=== PATIENT | female | born 1980 | race Caucasian/White ===

== ENCOUNTER 2016-10-27 19:53 | Emergency (ER) | payer MEDICAID ==
[~2016-10-27] VITALS: Ht 162.6 cm; Wt 99.8 kg
[~2016-10-27 19:53] MED LIST: ACETAMINOPHEN-1 EAC1 ORAL; ACETAMINOPHEN500 M3 ORAL; AMOXICILLIN500 MG ORAL; CLINDAMYCIN HC300 MG ORAL; IBUPROFEN600 MG ORAL; LOTRISONE CREAM15 GM TP; METFORMIN HCL500 M1 ORAL; NKM; NORCO 5-325 TA1 EACH ORAL; PENICILLIN V P500 MG ORAL
[2016-10-27 20:43] VITALS: BP 132/84
--- NOTE | 2016-10-27 21:38 | Emergency Room Report ---
History of Present Illness General Chief Complaint: Sore Throat Source: Patient, Medical Record Present Illness HPI 36-year-old female presents to emergency Department complaining of pain, swelling of the tonsils, fevers and chills x2 days.reports 10/10 pain. Pt states tonsils are so swollen causes her to gag, cough, and is painful to swallow. Pt. has been taking both tylenol and motrin every 6 hours with minimal relief of pain, only relief of fevers. Pt. also reports cough x 5 days. denies sputum production, denies wheezing, SOB, or dyspnea. pt. denies neck stiffness or neck pain. Denies CP, Palpitations, LOC, AMS, dizziness, Changes in Vision, Sensation, paresthesias, or a sudden severe headache. Allergies: Coded Allergies: No Known Allergies (Unverified , 06/01/13) Patient History Past Medical History: see triage record Past Surgical History: none Pertinent Family History: none Last Menstrual Period: on period Now: No Immunizations: UTD Reviewed Nursing Documentation: PMH: Agreed, PSxH: Agreed Nursing Documentation-PMH Past Medical History: No History, Except For Hx Diabetes: Yes Review of Systems All Other Systems: negative except mentioned in HPI Physical Exam Vital Signs Date Time Temp Pulse Resp B/P Pulse Ox O2 Delivery O2 Flow Rate FiO2 10/27/16 20:03 98.2 89 16 132/84 96 Room Air Sp02 EP Interpretation: reviewed, normal General Appearance: no apparent distress, alert, GCS 15, non-toxic Head: normocephalic, atraumatic Eyes: bilateral eye PERRL, bilateral eye normal inspection ENT: hearing grossly normal, normal pharynx, no angioedema, normal voice, TMs + canals normal, moist mucus membranes, nasal congestion, pharyngeal erythema, tonsillar exudate Neck: full range of motion, no meningismus, no bony tend, supple/symm/no masses Respiratory: chest non-tender, lungs clear, normal breath sounds, speaking full sentences Cardiovascular #1: regular rate, rhythm, no edema Cardiovascular #2: 2+ carotid (R), 2+ carotid (L), 2+ radial (R), 2+ radial (L) , 2+ dorsalis pedis (R), 2+ dorsalis pedis (L) Gastrointestinal: normal bowel sounds, non tender, soft, no guarding, no rebound Rectal: deferred Genitourinary: normal inspection, no CVA tenderness Musculoskeletal: back normal, gait/station normal, normal range of motion, non- tender, no calf tenderness Neurologic: alert, oriented x3, responsive, motor strength/tone normal, sensory intact, speech normal Psychiatric: judgement/insight normal, memory normal, mood/affect normal, no suicidal/homicidal ideation Reflexes: 4+ bicep (R), 4+ bicep (L), 4+ tricep (R), 4+ tricep (L), 4+ knee (R) , 4+ knee (L) Skin: normal color, no rash, warm/dry, well hydrated Lymphatic: no adenopathy Medical Decision Making PA Attestation Dr. Alanis is my supervising Physician whom patient management has been discussed with. Diagnostic Impression: Primary Impression: Pharyngitis, acute Qualified Codes: J02.9 - Acute pharyngitis, unspecified ER Course Pt. presents to the ED c/o : sore throat, painful swallowing, tonsillar swelling with fevers and chills x 2 days -Pt has taken both tylenol and motrin FINANCIAL OPERATIONS CONSULTANT. Ddx considered but are not limited to: pharyngitis, strep, FINANCIAL OPERATIONS CONSULTANT, ludwigs angina, URI Vital signs: are WNL, pt. is afebrile H&PE are most consistent with: pharyngitis presumed strep. ORDERS: None required at this time as the diagnosis is clinical ED INTERVENTIONS: -8mg Decadron IM. DISCHARGE: At this time pt. is stable for d/c to home. Will provide printed patient care instructions, and any necessary prescriptions. Care plan and follow up instructions have been discussed with the patient prior to discharge. Last Vital Signs Date Time Temp Pulse Resp B/P Pulse Ox O2 Delivery O2 Flow Rate FiO2 10/27/16 20:43 98.2 16 132/84 96 Room Air 10/27/16 20:03 89 Disposition: HOME, SELF-CARE Condition: Stable Scripts Ibuprofen* (MOTRIN*) 600 Mg Tablet 600 MG ORAL THREE TIMES A DAY, #30 TAB 0 Refills Prov: Macy Forrester P.A. 10/27/16 D-Methorphan Hb/Prometh Hcl* (PROMETHAZINE-DM SYRUP*) 118 Ml Syrup 5 ML ORAL Q6H Y for For Cough, #118 ML 0 Refills Prov: Macy Forrester 10/27/16 Amoxicillin* (AMOXIL*) 500 Mg Capsule 500 MG ORAL BID for 10 Days, #20 CAP Prov: Macy Forrester 10/27/16 Patient Instructions: Pharyngitis Additional Instructions: Take medications as directed. Follow up with PCP in 3-5 days Return sooner to ED if new symptoms occur, or current symptoms become worse. Macy Forrester Oct 27, 2016 21:38
[2016-10-27] MEDS ORDERED: AMOXICILLIN500 MG ORAL (21:39)
[2016-10-27] MEDS ORDERED: IBUPROFEN600 MG ORAL (21:39)
[2016-10-27] MEDS ORDERED: PROMETHAZINE-D118 ML ORAL (21:39)
[2016-10-27] MEDS ORDERED: Dexamethasone 4mg/ml vial IM ONE (21:45)
[2016-10-27 22:05] VITALS: BP 132/83
== END 2016-10-27 22:05 | disposition home or self-care (01) ==
LOC: EMR 21:30
DX: J02.9 Acute pharyngitis, unspecified (principal); E11.9 Type 2 diabetes mellitus without complications
CPT/HCPCS: 96372; 99283; J1100

== ENCOUNTER 2018-09-08 22:15 | Emergency (ER) | payer MEDICAID ==
[~2018-09-08] VITALS: Ht 162.6 cm; Wt 81.6 kg
[~2018-09-08 22:15] MED LIST changes: +PROMETHAZINE-D118 ML ORAL
[2018-09-08] MEDS ORDERED: NORVASC5 MG ORAL (22:27)
[2018-09-08] MEDS ORDERED: NEURONTIN300 MG ORAL (22:27)
[2018-09-08] MEDS ORDERED: HYDROmorphone 1mg/ml Carpuject IVP ONE (22:45)
--- NOTE | 2018-09-08 23:01 | Emergency Room Report ---
History of Present Illness General Chief Complaint: Pelvic Pain Source: Patient Present Illness HPI Is a 38-year-old female with no significant past medical history. She presents with groin pain. Around 8:30 today she was moving a dining room table and then she felt sharp pain in her left groin area. She now felt a lump there. Pain is 10 out of 10. Sharp in nature. No radiation. Worse with movement. Worse with palpation. No trauma. Allergies: Coded Allergies: No Known Allergies (Unverified , 06/01/13) Patient History Past Medical History: see triage record, old chart reviewed Past Surgical History: none Pertinent Family History: none Social History: Denies: smoking Last Menstrual Period: 08/19/2018 Now: No : 5 Para: 2 Nursing Documentation-[facility] Past Medical History: No History, Except For Hx Cardiac Problems: No - anemic-iron Hx Hypertension: Yes Hx Diabetes: Yes - pre diabetic Hx Cerebrovascular Accident: Yes - 2015 Review of Systems Eye: Denies: eye pain, blurred vision ENT: Denies: ear pain, nose congestion, throat swelling Respiratory: Denies: cough, shortness of breath Cardiovascular: Denies: chest pain, palpitations Gastrointestinal: Denies: abdominal pain, diarrhea, nausea, vomiting Musculoskeletal: Denies: back pain, joint pain Skin: Denies: rash Neurological: Denies: headache, numbness Endocrine: Denies: increased thirst, increased urine Hematologic/Lymphatic: Denies: easy bruising All Other Systems: negative except mentioned in HPI Physical Exam Vital Signs Date Time Temp Pulse Resp B/P (MAP) Pulse Ox O2 Delivery O2 Flow Rate FiO2 09/08/18 22:22 98.1 101 18 121/75 98 Room Air vitals normal Sp02 EP Interpretation: reviewed, normal General Appearance: well appearing, no apparent distress, alert Head: normocephalic, atraumatic Eyes: bilateral eye PERRL, bilateral eye EOMI ENT: hearing grossly normal, normal pharynx Neck: full range of motion, supple, no meningismus Respiratory: chest non-tender, lungs clear, normal breath sounds Cardiovascular #1: regular rate, rhythm, no murmur Gastrointestinal: normal bowel sounds, non tender, no mass, no organomegaly, no bruit, non-distended, other - Small left inguinal hernia. Tender to palpation. Musculoskeletal: back normal, gait/station normal, normal range of motion Psychiatric: mood/affect normal Skin: warm/dry Medical Decision Making Diagnostic Impression: Primary Impression: Inguinal hernia Qualified Codes: K40.90 - Unilateral inguinal hernia, without obstruction or gangrene, not specified as recurrent ER Course Patient with a left inner hernia. No evidence of any incarceration or obstruction. Reduce easily. We'll discharge home. Last Vital Signs Date Time Temp Pulse Resp B/P (MAP) Pulse Ox O2 Delivery O2 Flow Rate FiO2 09/08/18 22:22 98.1 101 18 121/75 98 Room Air Status: improved Disposition: HOME, SELF-CARE Condition: Stable Scripts Ibuprofen* (MOTRIN*) 600 Mg Tablet 600 MG ORAL THREE TIMES A DAY, #30 TAB 0 Refills Prov: Nathaniel Flores MD 09/08/18 Hydrocodone/Acetaminophen 5-325* (HYDROCODONE/ACETAMINOPHEN 5-325*) 1 Each Tablet 1 TAB ORAL Q6H PRN for For Pain, #15 TAB 0 Refills Prov: Nathaniel Flores MD 09/08/18 Referrals: NON PHYSICIAN (PCP) Additional Instructions: Follow-up with your doctor in 7 days. You may need a referral to see a surgeon. Return if worse. Nathaniel Flores MD Sep 08, 2018 23:01
[2018-09-08] MEDS ORDERED: IBUPROFEN600 MG ORAL (23:12)
[2018-09-08] MEDS ORDERED: HYDROCODON-ACE1 EA15 ORAL (23:12)
[2018-09-08 23:30] VITALS: BP 119/79
[2018-09-08 23:41] VITALS: BP 119/79
== END 2018-09-08 23:35 | disposition home or self-care (01) ==
LOC: EMR 22:48
DX: K40.90 Unilateral inguinal hernia, without obstruction or gangrene, not specified as recurrent (principal); R10.2 Pelvic and perineal pain; I10 Essential (primary) hypertension; Z86.73 Personal history of transient ischemic attack (TIA), and cerebral infarction without residual deficits
CPT/HCPCS: 96374; 96375; 99284; J1170; J2405

== ENCOUNTER 2018-12-15 10:07 | Emergency (ER) | payer MEDICAID ==
[~2018-12-15] VITALS: Ht 162.6 cm; Wt 89.8 kg
[~2018-12-15 10:07] MED LIST changes: +HYDROCODON-ACE1 EA15 ORAL; +NEURONTIN300 MG ORAL; +NORVASC5 MG ORAL
[2018-12-15] MEDS ORDERED: Dexamethasone 4mg/ml vial IM ONE (10:30)
[2018-12-15] MEDS ORDERED: AMOXICILLIN500 MG ORAL (10:32)
[2018-12-15] MEDS ORDERED: IBUPROFEN600 MG ORAL (10:32)
[2018-12-15 11:08] VITALS: BP 126/86
--- NOTE | 2018-12-15 11:10 | NUR ---
ED Nurse Note:pt. received decadron injection
--- NOTE | 2018-12-15 11:10 | NUR ---
ER DISCHARGE NOTE: Patient is cleared to be discharged per ERMD, pt is aox4, on room air, with stable vital signs. pt was given dc and prescription instructions, pt was able to verbalize understanding, pt is able to ambulate with steady gait. pt took all belongings.
[2018-12-15 11:11] VITALS: BP 126/86
--- NOTE | 2018-12-15 13:40 | Emergency Room Report ---
History of Present Illness General Chief Complaint: Sore Throat Source: Patient Present Illness HPI 38-year-old female presents ED for evaluation. Patient complaining of sore throat 2 days. States that her daughter was sick initially and was diagnosed with tonsillitis. Pain is throbbing, 10 out of 10, nonradiating. Hurst to swallow. Denies fevers chills. Denies cough. No other aggravating relieving factors. Denies any other associated symptoms Allergies: Coded Allergies: No Known Allergies (Unverified , 06/01/13) Patient History Past Medical History: DM, HTN, CVA/TIA Pertinent Family History: none Social History: Denies: smoking, alcohol use, drug use Last Menstrual Period: 11/2018 Now: No Immunizations: UTD Reviewed Nursing Documentation: PMH: Agreed; PSxH: Agreed Nursing Documentation-PMH Past Medical History: No History, Except For Hx Cardiac Problems: No - anemic-iron Hx Hypertension: Yes Hx Diabetes: Yes - pre diabetic Hx Cerebrovascular Accident: Yes - 2015 Review of Systems All Other Systems: negative except mentioned in HPI Physical Exam Vital Signs Date Time Temp Pulse Resp B/P (MAP) Pulse Ox O2 Delivery O2 Flow Rate FiO2 12/15/18 10:12 98.4 94 19 126/86 98 Room Air Sp02 EP Interpretation: reviewed, normal General Appearance: no apparent distress, alert, GCS 15, non-toxic Head: normocephalic Eyes: bilateral eye normal inspection, bilateral eye PERRL ENT: TMs + canals normal, uvula midline, pharyngeal erythema, tonsillar exudate Neck: full range of motion, supple, no meningismus, supple/symm/no masses Respiratory: normal inspection Cardiovascular #1: normal inspection Gastrointestinal: normal inspection Rectal: deferred Genitourinary: no CVA tenderness Musculoskeletal: normal inspection Neurologic: alert, oriented x3, responsive, motor strength/tone normal, sensory intact, speech normal Psychiatric: normal inspection Skin: normal inspection Lymphatic: normal inspection Medical Decision Making Diagnostic Impression: Primary Impression: Pharyngitis Qualified Codes: J02.9 - Acute pharyngitis, unspecified ER Course Hospital Course 38-year-old female presents to ED complaining of sore throat Differential diagnoses include: URI, pharyngitis, otitis media Clinical course Patient placed on stretcher. After initial history, physical exam reveals a female in no acute distress. Bilateral TM unremarkable. There is pharyngeal erythema w/ tonsillar exudates. No lymphadenopathy. Clinical findings consistent with pharyngitis discussed findings with patient. Given Decadron. Safe for discharge close outpatient follow-up. Patient states she has a PMD Diagnosis - pharyngitis Stable and discharged home with prescriptions for Motrin, amoxicillin. Instructed to followup with PMD. return to ED if symptoms recur or worsen Last Vital Signs Date Time Temp Pulse Resp B/P (MAP) Pulse Ox O2 Delivery O2 Flow Rate FiO2 12/15/18 11:11 98.4 75 19 126/86 98 Room Air Status: improved Disposition: HOME, SELF-CARE Condition: Stable Scripts Ibuprofen* (MOTRIN*) 600 Mg Tablet 600 MG ORAL Q8H PRN for For Pain, #30 TAB 0 Refills Prov: Drew Tirado MD 12/15/18 Amoxicillin* (AMOXIL*) 500 Mg Capsule 500 MG ORAL THREE TIMES A DAY, #21 CAP Prov: Drew Tirado MD 12/15/18 Referrals: [facility],REFERRING (PCP) Patient Instructions: Pharyngitis, [id number] Drew Tirado MD Dec 15, 2018 13:40
== END 2018-12-15 11:13 | disposition home or self-care (01) ==
LOC: EMR 10:35
DX: J02.9 Acute pharyngitis, unspecified (principal); I10 Essential (primary) hypertension; E11.9 Type 2 diabetes mellitus without complications; Z86.73 Personal history of transient ischemic attack (TIA), and cerebral infarction without residual deficits
CPT/HCPCS: 96372; 99283; J1100

== ENCOUNTER 2019-01-06 18:24 | Emergency (ER) | payer SELFPAY ==
[~2019-01-06] VITALS: Ht 162.6 cm; Wt 81.6 kg
--- NOTE | 2019-01-06 18:43 | NUR ---
ED Nurse Note: pt placed in room
[2019-01-06] MEDS ORDERED: Azithromycin 500 MG in NS 275 ML IV ONE (19:00)
[2019-01-06] MEDS ORDERED: Isovue-300 100ml vial INJ PRN (19:00)
[2019-01-06] MEDS ORDERED: Ketorolac 30mg Inj IV ONE (19:00)
[2019-01-06] MEDS ORDERED: Dexamethasone 4mg/ml vial IVP ONE (19:00)
[2019-01-06 19:01] VITALS: BP 101/78
--- NOTE | 2019-01-06 19:02 | NUR ---
ED Nurse Note: received pt. pt walked in to ED with daughter due to sore throat for 4 days. pt also c/o fever and chills. per pt, feeling swelling neck on left side. unable to swollow any food or drink. no cough. per pt, had similar sx couple weeks ago. denies SOB. will wait for the further order.
--- NOTE | 2019-01-06 19:10 | NUR ---
ED Nurse Note: Received Pt and report from day shift. Knowing Pt will need IV blood work as soon, will insert IV soon.
--- NOTE | 2019-01-06 19:15 | NUR ---
ED Nurse Note: Report given to NOAM Noriega. Patient returning from restroom with urine sample. Addendum: 01/06/19 at 1923 by OSWALD Ambulating with steady gait.
--- NOTE | 2019-01-06 19:30 | NUR ---
ED Nurse Note: Blood and urine sample sent to lab.
[2019-01-06 19:58] LABS: HEMATOCRIT 26.6 % (37.0-47.0); HEMOGLOBIN 7.9 G/DL (12.0-16.0); MEAN CORPUSCULAR VOLUME 67 FL (80-99); PLATELET COUNT 581 K/UL (150-450); RED BLOOD COUNT 3.97 M/UL (4.20-5.40); RED CELL DISTRIBUTION WIDTH 16.6 % (11.6-14.8); WHITE BLOOD COUNT 18.9 K/UL (4.8-10.8)
[2019-01-06 20:22] LABS: ANION GAP 7 mmol/L (5-15); BLOOD UREA NITROGEN 7 mg/dL (7-18); CARBON DIOXIDE 30 MMOL/L (21-32); CHLORIDE 100 MMOL/L (98-107); CREATININE 0.8 MG/DL (0.55-1.30); POTASSIUM 3.8 MMOL/L (3.5-5.1); SODIUM 137 MMOL/L (136-145)
--- NOTE | 2019-01-06 20:24 | Consultation ---
History of Present Illness General Date patient seen: Jan 06, 2019 Reason for Hospitalization: Sore Throat Present Illness HPI This is a 38-year-old female who is otherwise healthy that presents to the emergency department at [facility] complaining of worsening right neck and throat pain. Patient states that approximately 2 weeks ago she was diagnosed with pharyngitis and started on oral antibiotics. She was safe for discharge and discharged home with plans to follow-up with her PCP and potentially ENT referral. Patient states that she has an appointment with her PCP on January 13 but pain is been worsening and came to emergency department for evaluation. States that she is breathing okay and denies any shortness of breath or respiratory issues. States that she has difficulty swallowing solids but can tolerate liquids. Denies any nausea or vomiting fever or chills. In emergency department noted to have a leukocytosis of 18,000. Surgery called to evaluate. Allergies: Coded Allergies: No Known Allergies (Unverified , 06/01/13) Medication History Scheduled Amlodipine Besylate (Norvasc), Unknown Dose ORAL DAILY, (Reported) Amoxicillin* (Amoxil*), 500 MG ORAL THREE TIMES A DAY Gabapentin (Neurontin), 300 MG ORAL THREE TIMES A DAY, (Reported) Ibuprofen* (Motrin*), 600 MG ORAL THREE TIMES A DAY Metformin Hcl* (Metformin Hcl*), 500 MG ORAL TWICE A DAY, (Reported) Scheduled PRN Hydrocodone/Acetaminophen 5-325* (Hydrocodone/Acetaminophen 5-325*), 1 TAB ORAL Q6H PRN for For Pain Ibuprofen* (Motrin*), 600 MG ORAL Q8H PRN for For Pain Patient History Healthcare decision maker Resuscitation status Advanced Directive on File Review of Systems Review of Symptoms General ROS: no weight loss or fever Psychological ROS: no depression or mood changes, no memory loss Ophthalmic ROS: no visual changes or eye irritation ENT ROS: no nasal congestion, hearing loss, dizziness, throat pain Allergy and Immunology ROS: no allergic symptoms or urticaria Hematological and Lymphatic ROS: no swollen glands, unusual bleeding or bruising Endocrine ROS: no polyuria, polydipsia, weight changes, temperature intolerance Respiratory ROS: no cough, shortness of breath, or wheezing Cardiovascular ROS: no chest pain or dyspnea on exertion Gastrointestinal ROS: denies abdominal pain, no bright red blood in stool. Musculoskeletal ROS: no myalgias or arthralgias Neurological ROS: no TIA or stroke symptoms Dermatological ROS: no new or changing skin lesions, rashes or pruritis Physical Exam Physical Exam General appearance: alert, cooperative, no distress, appears stated age Head: Normocephalic, without obvious abnormality, atraumatic Eyes: conjunctivae/corneas clear. PERRL, EOM's intact. Fundi benign Throat: Lips, mucosa, and tongue normal. Teeth and gums normal; right pharyx erythema / tender Neck: supple, symmetrical, trachea midline, right adenopathy, thyroid: not enlarged, symmetric, tenderness on right, no carotid bruit and no JVD Lungs: clear to auscultation bilaterally Heart: regular rate and rhythm, S1, S2 normal, no murmur, click, rub or gallop Abdomen: soft, non-tender. Bowel sounds normal. No masses, no organomegaly Extremities: extremities normal, atraumatic, no cyanosis or edema Pulses: 2+ and symmetric Skin: Skin color, texture, turgor normal. No rashes or lesions Neurologic: Grossly normal Last 24 Hour Vital Signs Date Time Temp Pulse Resp B/P (MAP) Pulse Ox O2 Delivery O2 Flow Rate FiO2 01/06/19 19:01 101.1 99 20 101/78 96 Room Air 01/06/19 18:31 101.1 99 20 96 Room Air Laboratory Tests Test 01/06/19 19:35 White Blood Count 18.9 K/UL (4.8-10.8) H Red Blood Count 3.97 M/UL (4.20-5.40) L Hemoglobin 7.9 G/DL (12.0-16.0) L Hematocrit 26.6 % (37.0-47.0) L Mean Corpuscular Volume 67 FL (80-99) L Mean Corpuscular Hemoglobin 19.8 PG (27.0-31.0) L Mean Corpuscular Hemoglobin Concent 29.5 G/DL (32.0-36.0) L Red Cell Distribution Width 16.6 % (11.6-14.8) H Platelet Count 581 K/UL (150-450) H Mean Platelet Volume 5.0 FL (6.5-10.1) L Neutrophils (%) (Auto) % (45.0-75.0) Lymphocytes (%) (Auto) % (20.0-45.0) Monocytes (%) (Auto) % (1.0-10.0) Eosinophils (%) (Auto) % (0.0-3.0) Basophils (%) (Auto) % (0.0-2.0) Neutrophils % (Manual) Pending Lymphocytes % (Manual) Pending Platelet Estimate Pending Platelet Morphology Pending Urine HCG, Qualitative Negative (NEGATIVE) Sodium Level Pending Potassium Level Pending Chloride Level Pending Carbon Dioxide Level Pending Blood Urea Nitrogen Pending Creatinine Pending Estimat Glomerular Filtration Rate Pending Glucose Level Pending Lactic Acid Level 1.10 mmol/L (0.4-2.0) Calcium Level Pending Total Bilirubin Pending Aspartate Amino Transf (AST/SGOT) Pending Alanine Aminotransferase (ALT/SGPT) Pending Alkaline Phosphatase Pending Total Protein Pending Albumin Pending Globulin Pending Height (Feet): 5 Height (Inches): 4.00 Weight (Pounds): 180 Medications Current Medications Medications (Trade) Dose Ordered Sig/Freya Route PRN Reason Start Time Stop Time Status Last Admin Dose Admin Iopamidol (Isovue-300 100ml) 100 ml NOW PRN INJ Radiology Procedure 01/06/19 19:00 01/08/19 18:49 Assessment/Plan Problem List: (1) Pharyngitis Assessment & Plan: This is a 38-year-old female with recently diagnosed pharyngitis who returns with right neck submandibular pain, throat pain, feeling unwell. Afebrile, hemodynamically stable, leukocytosis. On exam tenderness in the right neck and submandibular region without significant palpable masses but some mild adenopathy. Oral examination demonstrates erythema and edema and inflammation of her right oropharynx. Above findings were discussed with patient and family in detail. Recommend ENT evaluation. May need to change antibiotics as they once prescribed prior were not seemingly effective. Recommend hydration. ICD Codes: J02.9 - Acute pharyngitis, unspecified SNOMED: [id number] Juan J Mejia Jan 06, 2019 20:24
[2019-01-06 20:27] LABS: ALANINE AMINOTRANSFERASE 23 U/L (12-78); ALBUMIN 3.7 G/DL (3.4-5.0); ALBUMIN/GLOBULIN RATIO 0.8 (1.0-2.7); ALKALINE PHOSPHATASE 108 U/L (46-116); ASPARTATE AMINO TRANSFERASE 14 U/L (15-37); BILIRUBIN,TOTAL 0.3 MG/DL (0.2-1.0)
--- NOTE | 2019-01-06 21:19 | Emergency Room Report ---
History of Present Illness General Chief Complaint: Sore Throat Present Illness Allergies: Coded Allergies: No Known Allergies (Unverified , 06/01/13) Patient History Past Medical History: see triage record Past Surgical History: none Pertinent Family History: none Last Menstrual Period: 1 week Now: No Immunizations: UTD Reviewed Nursing Documentation: PMH: Agreed; PSxH: Agreed Nursing Documentation-PMH Past Medical History: No History, Except For Hx Cardiac Problems: No - anemic-iron Hx Hypertension: Yes Hx Diabetes: Yes - pre diabetic Hx Cerebrovascular Accident: Yes - 2015 Review of Systems All Other Systems: negative except mentioned in HPI Physical Exam Vital Signs Date Time Temp Pulse Resp B/P (MAP) Pulse Ox O2 Delivery O2 Flow Rate FiO2 01/06/19 18:31 101.1 99 20 96 Room Air 01/06/19 19:01 101/78 Sp02 EP Interpretation: reviewed, normal General Appearance: alert, GCS 15, non-toxic, moderate distress Head: normocephalic, atraumatic Eyes: bilateral eye normal inspection, bilateral eye PERRL ENT: hearing grossly normal, normal voice, TMs + canals normal, moist mucus membranes, tonsillar swelling, pharyngeal erythema, other - no exudates noted, palpable mass right side of the neck Neck: full range of motion Respiratory: lungs clear, normal breath sounds, speaking full sentences Cardiovascular #1: regular rate, rhythm Gastrointestinal: normal bowel sounds, non tender, soft Musculoskeletal: back normal, gait/station normal, normal range of motion, non- tender Neurologic: alert, oriented x3, responsive, motor strength/tone normal, sensory intact, speech normal, grossly normal Psychiatric: judgement/insight normal Skin: normal color, no rash, warm/dry, well hydrated Medical Decision Making PA Attestation Dr. buckley is my supervising Physician whom patient management has been discussed with. ER Course Pt. presents to the ED c/o : sore throat, tonsillar swelling, and nasal congestion x 2 days Ddx considered but are not limited to: pharyngitis, strep, IT CONSULTING MANAGER, ludwigs angina, URI Vital signs:pt. is febrile @ 101.1, H&PE are most consistent with: pharyngitis suspicious for ST abscess. ORDERS: --CBC: WBC's elevated at 18k, Hgb 7.9 -- CMP: WNL --CT ST NECK W. CONTRAST ED INTERVENTIONS: -Decadron 8mg - Toradol IV -Azithromycin IV --Consult w. General Surgery Dr. Mejia, recommended ENT-plastics consult. DISCHARGE: At this time pt. is stable for d/c to home. Will provide printed patient care instructions, and any necessary prescriptions. Care plan and follow up instructions have been discussed with the patient prior to discharge. Labs Test 01/06/19 19:35 White Blood Count 18.9 K/UL (4.8-10.8) Red Blood Count 3.97 M/UL (4.20-5.40) Hemoglobin 7.9 G/DL (12.0-16.0) Hematocrit 26.6 % (37.0-47.0) Mean Corpuscular Volume 67 FL (80-99) Mean Corpuscular Hemoglobin 19.8 PG (27.0-31.0) Mean Corpuscular Hemoglobin Concent 29.5 G/DL (32.0-36.0) Red Cell Distribution Width 16.6 % (11.6-14.8) Platelet Count 581 K/UL (150-450) Mean Platelet Volume 5.0 FL (6.5-10.1) Neutrophils (%) (Auto) % (45.0-75.0) Lymphocytes (%) (Auto) % (20.0-45.0) Monocytes (%) (Auto) % (1.0-10.0) Eosinophils (%) (Auto) % (0.0-3.0) Basophils (%) (Auto) % (0.0-2.0) Differential Total Cells Counted 100 Neutrophils % (Manual) 78 % (45-75) Lymphocytes % (Manual) 13 % (20-45) Monocytes % (Manual) 7 % (1-10) Eosinophils % (Manual) 0 % (0-3) Basophils % (Manual) 2 % (0-2) Band Neutrophils 0 % (0-8) Platelet Estimate Increased Platelet Morphology Normal Polychromasia 1+ Hypochromasia 2+ Anisocytosis 2+ Microcytosis 2+ Urine HCG, Qualitative Negative (NEGATIVE) Sodium Level 137 MMOL/L (136-145) Potassium Level 3.8 MMOL/L (3.5-5.1) Chloride Level 100 MMOL/L (98-107) Carbon Dioxide Level 30 MMOL/L (21-32) Anion Gap 7 mmol/L (5-15) Blood Urea Nitrogen 7 mg/dL (7-18) Creatinine 0.8 MG/DL (0.55-1.30) Estimat Glomerular Filtration Rate > 60 mL/min (>60) Glucose Level 88 MG/DL (74-106) Lactic Acid Level 1.10 mmol/L (0.4-2.0) Calcium Level 9.0 MG/DL (8.5-10.1) Total Bilirubin 0.3 MG/DL (0.2-1.0) Aspartate Amino Transf (AST/SGOT) 14 U/L (15-37) Alanine Aminotransferase (ALT/SGPT) 23 U/L (12-78) Alkaline Phosphatase 108 U/L (46-116) Total Protein 8.4 G/DL (6.4-8.2) Albumin 3.7 G/DL (3.4-5.0) Globulin 4.7 g/dL Albumin/Globulin Ratio 0.8 (1.0-2.7) Last Vital Signs Date Time Temp Pulse Resp B/P (MAP) Pulse Ox O2 Delivery O2 Flow Rate FiO2 01/06/19 19:01 101.1 99 20 101/78 96 Room Air Scripts Hydrocodone Bit/Acetaminophen 5-325* (NORCO 5-325*) 1 Each Tablet 1 TAB ORAL Q6H PRN for For Pain, #10 TAB 0 Refills Prov: Macy Forrester 01/06/19 Amoxicillin/Potassium Clav 875-125* (AUGMENTIN 875-125 TABLET*) 1 Each Tablet 1 TAB ORAL TWICE A DAY for 14 Days, #28 TAB Prov: Macy Forrester 01/06/19 Referrals: NON PHYSICIAN (PCP) Natacha Carrion MD, Natalie PA Jan 06, 2019 21:19
[2019-01-06] MEDS ORDERED: NORCO 5-325 TA1 EACH ORAL (21:28)
[2019-01-06] MEDS ORDERED: AUGMENTIN 875-1 EAC1 ORAL (21:28)
[2019-01-06 22:10] VITALS: BP 120/88
[2019-01-06 22:15] VITALS: BP 120/88
[2019-01-06] MEDS ORDERED: HYDROcodone/Acetamin 5/325 tab ONE (22:15)
[2019-01-06] MEDS ORDERED: HYDROcodone/Acetamin 5/325 tab ORAL ONE (22:15)
--- NOTE | 2019-01-06 22:15 | NUR ---
ER DISCHARGE NOTE: Patient is cleared to be discharged per ERMD, pt is aox4, on room air, with stable vital signs. pt was given dc and prescription instructions, pt was able to verbalize understanding, pt id band and iv site removed without complications. pt is able to ambulate with steady gait. pt took all belongings.
--- NOTE | 2019-01-07 17:02 | Diagnostic Imaging Report ---
Indication: Fever, right-sided neck pain, sore throat, right-sided ear pain for 4 days Technique: IV administration nonionic contrast. Spiral acquisitions obtained through the neck. Multiplanar reconstructions were generated. Total dose length product 592.39 mGycm. CTDIvol(s) 19.21 mGy. Dose reduction achieved using automated exposure control Comparison: none Findings: There is enlargement of the right jugulodigastric node, which measures 3.5 cm long axis dimension, and there is infiltration of the fat surrounding it. Other prominent nodes are also seen in the anterior and posterior triangles and submental regions bilaterally. There is asymmetric enlargement of the right tonsillar pillar, but both tonsillar pillars appear somewhat enlarged. No discrete low-attenuation areas to suggest abscess demonstrated. There is mild narrowing of the lower nasopharynx due to the tonsillar enlargement. There is slight thickening of the right side of the vallecula as well. There is asymmetric enlargement of the right submandibular salivary gland. No significant prevertebral soft tissue swelling. The parapharyngeal spaces are clear, symmetric. The vascular structures are unremarkable. The left thyroid lobe demonstrates a 2 cm hypoechoic attenuating nodule. The upper mediastinum is unremarkable. The included lung apices are clear. The bones are unremarkable. There is evidence of numerous dental caries. Impression: Enlargement of the tonsillar pillars, right greater than left, likely indicating tonsillar inflammation. No evidence of abscess. There is resultant mild narrowing of the lower nasopharyngeal airway. Lymphadenopathy, especially right-sided, most likely reactive Infiltration of the fat surrounding the right jugulodigastric node, likely cellulitis or reactive inflammation. Correlate with clinical findings Prominent right submandibular gland, likely reactive but the possibility of sialadenitis should also be considered. 2 cm left lobe thyroid nodule. Recommend further evaluation with ultrasound Poor dentition with numerous dental caries This agrees with the preliminary interpretation provided overnight by [facility] teleradiology service. The CT scanner at [facility] is accredited by the [employer] and the scans are performed using protocols designed to limit radiation exposure to as low as reasonably achievable to attain images of sufficient resolution adequate for diagnostic evaluation.
== END 2019-01-06 22:15 | disposition home or self-care (01) ==
LOC: EMR 18:45
DX: J02.9 Acute pharyngitis, unspecified (principal); I10 Essential (primary) hypertension; Z86.73 Personal history of transient ischemic attack (TIA), and cerebral infarction without residual deficits; R73.03 Prediabetes
CPT/HCPCS: 36415; 70491; 80053; 81025; 83605; 85007; 85025; 87040; 96361; 96365; 96375; 99284; J0456; J1100; J1885; J7050; Q9967

== ENCOUNTER → 2019-04-02 | Emergency (ER) | payer MEDICAID ==
[~2019-04-02] VITALS: Ht 162.6 cm; Wt 95.3 kg
[~2019-04-02] MED LIST changes: +AUGMENTIN 875-1 EAC1 ORAL; +Clindamycin 150mg cap ONE; +Clindamycin 150mg cap ORAL ONE; +HYDROcodone/Acetamin 5/325 tab ORAL ONE
[2019-04-02 22:30] VITALS: BP 123/73
--- NOTE | 2019-04-02 22:40 | NUR ---
ED Nurse Note: Pt triaged at bedside, pt ambulated to ED from home c/o sore throat, pain with swallowing and head ache 10/ since the begining of the day. Pt is A&Ox4. Partner at bedside. Pt is crying and states she is anxious. VSS
--- NOTE | 2019-04-02 22:45 | Emergency Room Report ---
History of Present Illness General Chief Complaint: Upper Respiratory Illness Source: Patient Present Illness HPI 38-year-old female with history of hypertension. She presents with chief complaint of sore throat and swelling. Onset the last 2 days. It is 10 out of 10. Mostly on the right side. Worse with swallowing. Also with subjective fever and chills. No drooling. Similar symptom in the past. This will be her third or fourth time with this occurring. Allergies: Coded Allergies: No Known Allergies (Unverified , 06/01/13) Patient History Past Medical History: see triage record, old chart reviewed, HTN Past Surgical History: other Pertinent Family History: none Social History: Denies: smoking Last Menstrual Period: 03/05/19 Now: No Immunizations: other Reviewed Nursing Documentation: PMH: Agreed; PSxH: Agreed Nursing Documentation-PMH Past Medical History: No History, Except For Hx Hypertension: Yes Hx Diabetes: Yes - pre diabetic Hx Cerebrovascular Accident: Yes - 2015 Review of Systems Constitutional: Reports: fever Eye: Denies: eye pain, blurred vision ENT: Reports: throat pain; Denies: ear pain, nose congestion, throat swelling Respiratory: Denies: cough, shortness of breath Cardiovascular: Denies: chest pain, palpitations Gastrointestinal: Denies: abdominal pain, diarrhea, nausea, vomiting Musculoskeletal: Denies: back pain, joint pain Skin: Denies: rash Neurological: Denies: headache, numbness Endocrine: Denies: increased thirst, increased urine Hematologic/Lymphatic: Denies: easy bruising All Other Systems: negative except mentioned in HPI Physical Exam Vital Signs Date Time Temp Pulse Resp B/P (MAP) Pulse Ox O2 Delivery O2 Flow Rate FiO2 04/02/19 22:26 88 22 123/83 (96) 97 Room Air 04/02/19 22:30 98.7 Vitals normal Sp02 EP Interpretation: reviewed, normal General Appearance: well appearing, no apparent distress, alert Head: normocephalic, atraumatic Eyes: bilateral eye PERRL, bilateral eye EOMI ENT: hearing grossly normal, normal pharynx, tonsillar swelling, pharyngeal erythema, tonsillar exudate, other - No trismus Neck: full range of motion, supple, no meningismus, tender - Tender cervical adenopathy, right side Respiratory: chest non-tender, lungs clear, normal breath sounds Cardiovascular #1: regular rate, rhythm, no murmur Gastrointestinal: normal bowel sounds, non tender, no mass, no organomegaly, no bruit, non-distended Musculoskeletal: back normal, gait/station normal, normal range of motion Psychiatric: anxious Skin: warm/dry Medical Decision Making Diagnostic Impression: Primary Impression: Acute tonsillitis Qualified Codes: J03.90 - Acute tonsillitis, unspecified ER Course Patient presents with tonsillitis/pharyngitis. Most likely strep. No evidence of peritonsillar abscess, retropharyngeal abscess or Amado angina. She is very anxious. Better with reassurance. Will discharge home. Last Vital Signs Date Time Temp Pulse Resp B/P (MAP) Pulse Ox O2 Delivery O2 Flow Rate FiO2 04/02/19 22:30 98 29 Room Air 04/02/19 22:30 98.7 123/73 99 Status: improved Disposition: HOME, SELF-CARE Condition: Stable Scripts Ibuprofen* (MOTRIN*) 600 Mg Tablet 600 MG ORAL THREE TIMES A DAY, #30 TAB 0 Refills Prov: Nathaniel Flores MD 04/02/19 Hydrocodone/Acetaminophen 5-325* (HYDROCODONE/ACETAMINOPHEN 5-325*) 1 Each Tablet 1 TAB ORAL Q6H PRN for For Pain, #15 TAB 0 Refills Prov: Nathaniel Flores MD 04/02/19 Clindamycin Hcl (CLINDAMYCIN HCL) 300 Mg Capsule 300 MG ORAL THREE TIMES A DAY, #21 CAP Prov: Nathaniel Flores MD 04/02/19 Additional Instructions: Increase fluids. Salt water gargle. Follow-up with your doctor in 3 to 7 days for recheck. You may need a referral to see ENT doctor. Return if symptoms worsen. Nathaniel Flores MD Apr 02, 2019 22:45
[2019-04-02 22:54] VITALS: BP 125/86
--- NOTE | 2019-04-02 22:54 | NUR ---
ER DISCHARGE NOTE: Patient is cleared to be discharged per ERMD, pt is aox4, on room air, with stable vital signs. pt was given dc and prescription instructions, pt was able to verbalize understanding, pt id band removed. pt is able to ambulate with steady gait. pt took all belongings. PT VSS,
== END | disposition home or self-care (01) ==
LOC: EMR 22:30
DX: J03.90 Acute tonsillitis, unspecified (principal); I10 Essential (primary) hypertension; E11.9 Type 2 diabetes mellitus without complications; Z86.73 Personal history of transient ischemic attack (TIA), and cerebral infarction without residual deficits
CPT/HCPCS: 99282; J7512

== ENCOUNTER 2019-09-28 17:53 | Emergency (ER) | payer MEDICAID ==
[~2019-09-28] VITALS: Ht 162.6 cm; Wt 87.1 kg
[~2019-09-28 17:53] MED LIST changes: -Clindamycin 150mg cap ONE; -Clindamycin 150mg cap ORAL ONE; -HYDROcodone/Acetamin 5/325 tab ORAL ONE
[2019-09-28 18:40] VITALS: BP 143/83
[2019-09-28] MEDS ORDERED: HYDROcodone/Acetamin 5/325 tab ORAL ONE (18:45)
[2019-09-28] MEDS ORDERED: NORCO 5-325 TA1 EACH ORAL (18:45)
[2019-09-28] MEDS ORDERED: CLEOCIN150 MG ORAL (18:45)
[2019-09-28 18:54] VITALS: BP 143/83
--- NOTE | 2019-09-28 19:09 | Emergency Room Report ---
History of Present Illness General Chief Complaint: Toothache Source: Patient Present Illness HPI 39 year old female presents with right upper tooth pain for 3 days. She reports her tooth chipped 3 days ago and the pain has been getting worse since. She reports the pain radiates to her ear and jaw and is constant, rated 9/10. Denies fever or other symptoms. Denies history of dental abscess. Denies drug use. She took 800 mg Ibuprofen yesterday with some relief. She has not seen a dentist but does have one that she can see this week. LMP was 2 weeks ago, denies chance of . Allergies: Coded Allergies: No Known Allergies (Unverified , 06/01/13) Patient History Past Medical History: see triage record Past Surgical History: none Pertinent Family History: none Last Menstrual Period: 09/16/19 Now: No Reviewed Nursing Documentation: PMH: Agreed; PSxH: Agreed Nursing Documentation-PMH Past Medical History: No History, Except For Hx Hypertension: Yes Hx Diabetes: Yes - pre diabetic Hx Cerebrovascular Accident: Yes - 2015 Review of Systems All Other Systems: negative except mentioned in HPI Physical Exam Vital Signs Date Time Temp Pulse Resp B/P (MAP) Pulse Ox O2 Delivery O2 Flow Rate FiO2 09/28/19 18:05 98.8 90 16 143/83 (103) 98 Room Air Sp02 EP Interpretation: reviewed, normal General Appearance: no apparent distress, alert, GCS 15, non-toxic Head: normocephalic, atraumatic Eyes: bilateral eye normal inspection, bilateral eye PERRL ENT: hearing grossly normal, normal pharynx, no angioedema, normal voice, other - chipped tooth #3, dental caries, no evidence of dental abscess Neck: full range of motion, supple/symm/no masses Respiratory: lungs clear, normal breath sounds, speaking full sentences Cardiovascular #1: regular rate, rhythm Neurologic: alert, oriented x3, responsive, speech normal Psychiatric: judgement/insight normal Lymphatic: no adenopathy Medical Decision Making PA Attestation Dr. Benjamin is my supervising physician whom patient management and care has been discussed with. Diagnostic Impression: Primary Impression: Toothache ER Course Pt. presents to the ED c/o toothache. Ddx considered but are not limited to dental abscess, gingivitis, dental caries. Vital signs: are WNL, pt. is afebrile H&PE are most consistent with dental pain due to chipped tooth ORDERS: none required at this time, the diagnosis is clinical ED INTERVENTIONS: Given [place] 5/325 for pain DISCHARGE: At this time pt. is stable for d/c to home. Given prescription for [place] for pain and Clindamycin in case of early infection. Will provide printed patient care instructions, and any necessary prescriptions. Care plan and follow up instructions have been discussed with the patient prior to discharge. Last Vital Signs Date Time Temp Pulse Resp B/P (MAP) Pulse Ox O2 Delivery O2 Flow Rate FiO2 09/28/19 18:40 98.8 16 143/83 98 Room Air 09/28/19 18:05 90 Disposition: HOME, SELF-CARE Condition: Stable Scripts Hydrocodone Bit/Acetaminophen 5-325* (NORCO 5-325*) 1 Each Tablet 1 TAB ORAL Q6H PRN for For Pain, #10 TAB 0 Refills Prov: Aparna Flood P.Mariela 09/28/19 Clindamycin HCl (Clindamycin HCl) 300 Mg Capsule 300 MG ORAL EVERY 6 HOURS for 10 Days, #40 CAP Prov: Aparna Flood N. P.Mariela 09/28/19 Patient Instructions: Dental Pain Additional Instructions: FOLLOW UP WITH A DENTIST. TAKE ANTIBIOTICS DIRECTED. RETURN IF YOU HAVE FEVER OR WORSENING SYMPTOMS. Aparna Flood PAce Sep 28, 2019 19:09
== END 2019-09-28 18:55 | disposition home or self-care (01) ==
LOC: EMR 18:54
DX: K08.89 Other specified disorders of teeth and supporting structures (principal); I10 Essential (primary) hypertension; R73.03 Prediabetes; Z86.73 Personal history of transient ischemic attack (TIA), and cerebral infarction without residual deficits
CPT/HCPCS: 99282

== ENCOUNTER 2019-10-07 22:57 | Emergency (ER) | payer MEDICAID ==
[~2019-10-07] VITALS: Ht 162.6 cm; Wt 88.9 kg
[~2019-10-07 22:57] MED LIST changes: +CLEOCIN150 MG ORAL
[2019-10-07] MEDS ORDERED: METFORMIN HCL500 M1 ORAL (23:07)
--- NOTE | 2019-10-07 23:18 | NUR ---
ED Nurse Note: pt walked in c/o right upper eyelid pain, swelling and itching for past three days. pt denies vision changes. pt states she was taking antibiotic for past week for mouth infection and noticed her right upper eyelid swelling. noted mild redness and swelling on the site, tender to touch. no drainage at this time. will cont monitor.
[2019-10-07 23:28] VITALS: BP 148/81
[2019-10-08] MEDS ORDERED: POLYTRIM OP SOL10 ML OPHTHALM (00:19)
--- NOTE | 2019-10-08 00:20 | Emergency Room Report ---
History of Present Illness General Chief Complaint: Eye Problems Source: Patient, Family Member, Medical Record Present Illness HPI This is a 39-year-old female with with history of diabetes and high blood pressure. She presents with chief complaint of swelling to the right eyelid. This onset 4 days ago. Better with a warm compress. Complaining of some headache and pain with it. No nausea no vomiting. No drainage. Fever. Never had this problem before. Allergies: Coded Allergies: No Known Allergies (Unverified , 06/01/13) Patient History Past Medical History: see triage record, old chart reviewed, DM, HTN Past Surgical History: other Pertinent Family History: none Social History: Denies: smoking Now: No Immunizations: other Reviewed Nursing Documentation: PMH: Agreed; PSxH: Agreed Nursing Documentation-PMH Past Medical History: No History, Except For Hx Hypertension: Yes Hx Diabetes: Yes Hx Cerebrovascular Accident: Yes - 2015 Review of Systems Eye: Denies: eye pain, blurred vision ENT: Denies: ear pain, nose congestion, throat swelling Respiratory: Denies: cough, shortness of breath Cardiovascular: Denies: chest pain, palpitations Gastrointestinal: Denies: abdominal pain, diarrhea, nausea, vomiting Musculoskeletal: Denies: back pain, joint pain Skin: Denies: rash Neurological: Denies: headache, numbness Endocrine: Denies: increased thirst, increased urine Hematologic/Lymphatic: Denies: easy bruising All Other Systems: negative except mentioned in HPI Physical Exam Vital Signs Date Time Temp Pulse Resp B/P (MAP) Pulse Ox O2 Delivery O2 Flow Rate FiO2 10/07/19 23:03 97.9 87 18 148/81 (103) 99 Room Air Vitals normal except for high blood pressure Sp02 EP Interpretation: reviewed, normal General Appearance: well appearing, no apparent distress, alert Head: normocephalic, atraumatic Eyes: right eye other - Right eyelid with internal stye in the upper lid.; bilateral eye PERRL, bilateral eye EOMI ENT: hearing grossly normal, normal pharynx Neck: full range of motion, supple, no meningismus Respiratory: chest non-tender, lungs clear, normal breath sounds Cardiovascular #1: regular rate, rhythm, no murmur Gastrointestinal: normal bowel sounds, non tender, no mass, no organomegaly, no bruit, non-distended Musculoskeletal: back normal, normal range of motion, gait/station normal Psychiatric: mood/affect normal Medical Decision Making Diagnostic Impression: Primary Impression: Stye Qualified Codes: H00.011 - Hordeolum externum right upper eyelid ER Course Presents with a stye. No evidence of cellulitis. Will discharge home. Last Vital Signs Date Time Temp Pulse Resp B/P (MAP) Pulse Ox O2 Delivery O2 Flow Rate FiO2 10/07/19 23:28 97.9 86 18 148/81 99 Room Air Status: unchanged Disposition: HOME, SELF-CARE Condition: Stable Scripts Polymyxin/Trimethoprim (Polytrim Eye Drops) 10 Ml Drops 2 DROP OPHTHALM THREE TIMES A DAY, #1 EA Instill in affected eye for 7 days Prov: Nathaniel Flores MD 10/08/19 Additional Instructions: Continue with warm compress. Follow-up with your doctor in 7 days. Return if symptoms worsen. Nathaniel Flores MD Oct 08, 2019 00:20
[2019-10-08 00:22] VITALS: BP 148/81
--- NOTE | 2019-10-08 00:22 | NUR ---
ER DISCHARGE NOTE: Patient is cleared to be di scharged per ERMD, pt is aox4, on room air, with stable vital signs. pt was given dc and prescription instructions, pt was able to verbalize understanding, pt id band removed without complications. pt is able to ambulate with steady gait. pt took all belongings.
== END 2019-10-08 00:22 | disposition home or self-care (01) ==
LOC: EMR 23:36
DX: H00.011 Hordeolum externum right upper eyelid (principal); E11.9 Type 2 diabetes mellitus without complications; I10 Essential (primary) hypertension; Z86.73 Personal history of transient ischemic attack (TIA), and cerebral infarction without residual deficits
CPT/HCPCS: 99282